=== PATIENT | female | born 1990 | race Caucasian/White ===

== ENCOUNTER 2021-09-08 07:45 | Inpatient (IN) | payer OTHER ==
[~2021-09-08] VITALS: Ht 157.5 cm; Wt 122.0 kg
[2021-09-08] MEDS ORDERED: ANAPROX PO (09:48)
[2021-09-08] MEDS ORDERED: DIAZEPAM10 MG PO (09:51)
[2021-09-10] MEDS ORDERED: TRI-LO-SPRINTE1 EACH (07:55)
[2021-09-10] MEDS ORDERED: FLONASE16 GM (07:55)
[2021-09-10] MEDS ORDERED: NAPROXEN SODIU550 MG (08:01)
== END 2021-09-12 11:29 | disposition home or self-care (01) | DRG 743 ==
LOC: EDSTATUS 07:45 → ADM 07:45 → O/R 09-10 05:36 → OB/GYN 09-10 05:36
PROVIDERS: ADMIT Obstetrics & Gynecology; ATTEND Obstetrics & Gynecology
PROC: 0UT00ZZ Resection of Right Ovary, Open Approach (ICD-10-PCS; 2021-09-10)
PROC: 0DNW0ZZ Release Peritoneum, Open Approach (ICD-10-PCS; 2021-09-10)
PROC: 0UB10ZZ Excision of Left Ovary, Open Approach (ICD-10-PCS; principal; 2021-09-10 07:00)
DX: D27.1 Benign neoplasm of left ovary (principal); D27.0 Benign neoplasm of right ovary; Z20.822 Contact with and (suspected) exposure to COVID-19; N73.6 Female pelvic peritoneal adhesions (postinfective)

== ENCOUNTER 2023-02-11 09:02 | Inpatient (IN) | payer OTHER ==
[~2023-02-11] VITALS: Ht 157.5 cm; Wt 53.5 kg
[~2023-02-11 09:02] MED LIST: ANAPROX PO; DIAZEPAM10 MG PO; FLONASE16 GM; NAPROXEN SODIU550 MG; TRI-LO-SPRINTE1 EACH
[2023-02-12] MEDS ORDERED: ANAPROX PO (09:23)
[2023-02-12] MEDS ORDERED: [UNRECOGNIZED DRUG - OTHER] PO (09:23)
[2023-02-12] MEDS ORDERED: ALLEG PO (09:24)
[2023-02-17] MEDS ORDERED: ALLEGRA ALLERGY60 MG (08:18)
[2023-02-17] MEDS ORDERED: DIAZEPAM2 MG (08:18)
== END 2023-02-19 09:47 | disposition home or self-care (01) | DRG 743 ==
LOC: OB/GYN 02-17 05:45 → O/R 02-17 05:45 → SURG 02-17 07:15 → OB/GYN 02-17 09:20 → SURG 02-17 10:00 → OB/GYN 02-19 09:47
PROVIDERS: ADMIT Obstetrics & Gynecology; ATTEND Obstetrics & Gynecology
PROC: 0DN80ZZ Release Small Intestine, Open Approach (ICD-10-PCS; 2023-02-17)
PROC: 0UB20ZZ Excision of Bilateral Ovaries, Open Approach (ICD-10-PCS; principal; 2023-02-17 10:00)
DX: N83.11 Corpus luteum cyst of right ovary (principal); N83.12 Corpus luteum cyst of left ovary; Z20.822 Contact with and (suspected) exposure to COVID-19; N73.6 Female pelvic peritoneal adhesions (postinfective)

== ENCOUNTER 2023-03-04 23:10 | Emergency (ER) | payer OTHER ==
[~2023-03-04] VITALS: Ht 157.5 cm; Wt 53.5 kg
[~2023-03-04 23:10] MED LIST changes: +ALLEG PO; +ALLEGRA ALLERGY60 MG; +DIAZEPAM2 MG; +[UNRECOGNIZED DRUG - OTHER] PO
== END 2023-03-05 08:30 | disposition home or self-care (01) ==
LOC: ER 23:10
PROVIDERS: General Practice
DX: N39.0 Urinary tract infection, site not specified (principal); Z88.0 Allergy status to penicillin; Z88.5 Allergy status to narcotic agent